=== PATIENT | male | born 1970 | race American Indian/Alaskan Native ===

== ENCOUNTER 2019-08-20 20:59 | Emergency (ER) | payer OTHER ==
[2019-08-20] MEDS ORDERED: LIDOCAINE 1%/EPINEPHRINE 1:100,000 VIAL (20 ML) INFILTRATI ONE (21:11)
[2019-08-20] MEDS ORDERED: TETANUS,DIPH,PERTUSS(ACELL) VACCINE 0.5 ML SYRINGE IM ONE (21:12)
--- NOTE | 2019-08-20 22:03 | Emergency Department Report ---
ED Lower Extremity HPI - General Stated Complaint: LACERATION TO RIGHT LEG Time Seen by Provider: 08/20/19 21:11 Source: patient Mode of arrival: Ambulatory Limitations: No Limitations - History of Present Illness Initial Comments: Mr. Macario is a healthy 49-year-old male who presents with right lower leg laceration with a pocketknife. The incident occurred while moving furniture from one another. Unknown tetanus status. Mild pain. Severe amount of bleeding controlled with pressure. The laceration injury occurred 1.5 hours prior to arival. He was able to walk and drive after the incident. Complaint: leg injury -: Sudden, This evening Injury: Leg: Right Type of Injury: laceration Place: home Severity: mild, moderate Improves With: nothing Worsens With: nothing Context: other (pocket knife) Associated Symptoms: ambulatory, other (bleeding) ED Review of Systems ROS: Stated complaint: LACERATION TO RIGHT LEG Other details as noted in HPI Constitutional: denies: fever, malaise Skin: other (right leg laceration). denies: rash, lesions Neurological: denies: numbness, paresthesias ED Past Medical Hx - Past Medical History Previous Medical History?: No - Surgical History Past Surgical History?: Yes Additional Surgical History: feet surgery s/p bilateral calcaneal fractures - Family History Family history: hypertension - Social History Smoking Status: Never Smoker Substance Use Type: Alcohol ED Physical Exam - General Limitations: No Limitations General appearance: alert, in no apparent distress - Head Head exam: Present: atraumatic, normocephalic - Eye Eye exam: Present: normal appearance - Neck Neck exam: Present: normal inspection, full ROM - Extremities Exam Extremities exam: Present: other (right mid lateral lower le cm laceration deep to muscle, moderate bleeding oozing and squirting) - Neurological Exam Neurological exam: Present: alert, oriented X3 - Psychiatric Psychiatric exam: Present: normal affect, normal mood - Skin Skin exam: Present: warm, dry, intact, normal color - Laceration /Wound Repair Right Lateral Leg Wound Location: lower extremity Irrigated w/ Saline (ccs): 1,000 Betadine Prep?: Yes Anesthesia: Lidocaine w/ Epi Volume Anesthetic (ccs): 20 Wound Debrided: extensive Wound Repaired With: sutures Suture Size/Type: 4:0, proline Number of Sutures: 6 Layer Closure?: Yes Deep Layer Suture Size/Type: 4:0 Number Deep Layer Sutures: 6 Sterile Dressing Applied?: Yes Progress: Required pressure and epinephrine for hemostasis, extensive debridement of clotted blood with sterile gauze, sterile gloves used with mask ED Lower Extremity MDM - Medical Decision Making Complex right lower leg laceration layer repair, tdap booster given 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 They verbalized understandingof return precautions. Plan to take home presription of Clindamycin Critical care attestation.: If time is entered above; I have spent that time in minutes in the direct care of this critically ill patient, excluding procedure time. ED Disposition Clinical Impression: Laceration of right leg excluding thigh Disposition: DC-01 TO HOME OR SELFCARE Is pt being admited?: No Does the pt Need Aspirin: No Condition: Stable Additional Instructions: It was good great to see you and Yolette. Please remember to take the clindamycin for at least 7 days.
[2019-08-20 22:27] VITALS: BP 129/87
[2019-08-21] MEDS ORDERED: SODIUM CHLORIDE IRRI 500 ML 500 ML IR ONE (00:39)
[2019-08-21] MEDS ORDERED: SODIUM CHLORIDE 0.9% IRR 500 ML BOTTLE IR ONE (00:39)
== END 2019-08-20 23:52 | disposition home or self-care (01) ==
LOC: ED 20:59
DX: S71.111A Laceration without foreign body, right thigh, initial encounter (principal); X58.XXXA Exposure to other specified factors, initial encounter; Y93.89 Activity, other specified; Y92.89 Other specified places as the place of occurrence of the external cause; Y99.8 Other external cause status
CPT/HCPCS: 90471; 90715; 99281